=== PATIENT | male | born 1945 | race Caucasian/White ===

== ENCOUNTER 2017-02-28 01:13 | Emergency (ER) | payer MEDICARE ==
--- NOTE | ~2017-02-28 | CR72 ---
[facility] A Service of [facility] & [facility] RADIOLOGY TEXT RESULTS PATIENT: LILIAN CURRIE LOCATION: [facility] : 43 UNIT #: [id number] AGE: [address]: Americo Murrieta MD SEX: M ORDER DR: [id number] [facility] [address] [place], [place] [address] [id number] MR#: [id number] #: [id number] NAME: LILIAN CURRIE : 1945 SEX: M STUDY DATE/TIME: 02/28/2017 1:54 UNIT: [facility] ROOM: STUDY DESCRIPTION: CR Chest Single View Portable Attending Physician: Americo Murrieta M.D. Ordering Physician: Americo Murrieta M.D. Primary Care Physician: Morteza Cordova A.P.R.N. MEDICAL IMAGING REPORT This report is preliminary unless electronic signature is present EXAM Portable chest INDICATIONS Shortness of air for 6 days. COMPARISON 03/26/10 FINDINGS This portable view of the chest shows diffuse interstitial prominence suggesting infiltrate. There is a small left effusion and there is some left pleural reaction probably due to old trauma, which was present on 03/26/10. The heart size is normal. The bones are unremarkable. Dictated by... Tin Harrington M.D. THIS IS AN ELECTRONICALLY VERIFIED REPORT Tin Harrington M.D. at 02/28/2017 4:42 AM EDNA/rei TD: 02/28/2017 02:27 JOB #: [id number] MEDICAL IMAGING REPORT Page 1 of 1 COPY
--- NOTE | ~2017-02-28 | EKG ---
PATIENT: LILIAN CURRIE UNIT #: [id number] Ventricular Rate: 97 BPM Atrial Rate: 97 BPM P-R Interval: 168 ms QRS Duration: 122 ms Q-T Interval: 368 ms QTC Calculation(Bezet): 467 ms P [place]: 68 degrees Calculated R [place]: -39 degrees Calculated T [place]: 102 degrees Diagnosis Line: Normal sinus rhythm Diagnosis Line: Left axis deviation Diagnosis Line: Left ventricular hypertrophy with QRS widening Diagnosis Line: Cannot rule out Septal infarct (cited on or before Diagnosis Line: 31-JUL-2009) Diagnosis Line: ST and T wave abnormality, consider lateral ischemia Diagnosis Line: Abnormal ECG Diagnosis Line: When compared with ECG of 01-AUG-2009 06:39, Diagnosis Line: Significant changes have occurred Diagnosis Line: Confirmed by NO NORMAN, EMMANUEL ([id number]) on Diagnosis Line: 02/28/2017 4:06:50 PM INTERPRETING MD: HERBERTH
[~2017-02-28 01:13] MED LIST: ASPIRINEC PO; BACTRIM DS TABL1 TA1 PO; KEFLEX500 MG PO; LEVAQUIN750 MG PO; LOPRESSOR PO; PLAVIX PO; PRAVACHOL PO; SYNTHROID125 PO
[2017-02-28 02:06] LABS: BASOPHIL% 0.4 % (0-2.5); EOSINOPHIL# 0.6 X10e3 (0-0.7); HEMATOCRIT 38.5 % (38.0-50.0); HEMOGLOBIN 12.6 gm/dL (13.0-16.0); LYMPHOCYTE# 1.7 X10e3 (1.0-3.5); LYMPHOCYTE% 15.2 % (17.0-45.0); MEAN CELL VOLUME 99.9 FL (83-96); MEAN CORPUSCULAR HEMOGLOBIN 32.8 PG (28-34); MEAN CORPUSCULAR HGB CONC 32.9 g/dL (30-36); MEAN PLATELET VOLUME 10.4 FL (6.5-11.5); MONOCYTE# 1.2 X10e3 (0-1.0); NEUTROPHIL% 69.4 % (40-75); RED BLOOD COUNT 3.85 X10e (3.90-5.60); RED CELL DISTRIBUTION WIDTH 13.3 % (11.0-15.5); WHITE BLOOD COUNT 11.5 X10e3 (4.0-10.5)
[2017-02-28 02:06] LABS: POC - CKMB 2.1 ng/mL (0.0-7.9); POC - TROPONIN <0.05 ng/mL (<=0.05)
[2017-02-28 02:24] LABS: DIFF IND NO; PLATELET COUNT 156 X10e3 (140-420)
[2017-02-28 02:29] LABS: BUN/CREATININE RATIO 12.72; CALCIUM SERUM 8.8 mg/dL (8.4-10.2); CREATININE SERUM 1.1 mg/dL (0.6-1.4); GLOM FILT RATE Estimated 66.3 mL/min (>60); POTASSIUM 3.9 mmol/L (3.5-5.1)
== END 2017-02-28 03:10 | disposition home or self-care (01) ==
LOC: CED 01:13
PROVIDERS: Emergency Medicine
DX: J44.1 Chronic obstructive pulmonary disease with (acute) exacerbation (principal); J18.1 Lobar pneumonia, unspecified organism; I25.10 Atherosclerotic heart disease of native coronary artery without angina pectoris; I35.0 Nonrheumatic aortic (valve) stenosis; F17.200 Nicotine dependence, unspecified, uncomplicated; Z79.82 Long term (current) use of aspirin; Z79.899 Other long term (current) drug therapy
CPT/HCPCS: 36415; 71010; 80048; 82553; 83880; 84484; 85025; 93005; 94640; 99285

== ENCOUNTER 2017-03-05 | Emergency (ER) | payer MEDICARE ==
--- NOTE | ~2017-03-05 | EKG ---
PATIENT: LILIAN CURRIE UNIT #: [id number] Ventricular Rate: 74 BPM Atrial Rate: 74 BPM P-R Interval: 136 ms QRS Duration: 126 ms Q-T Interval: 404 ms QTC Calculation(Bezet): 448 ms P [place]: 1 degrees Calculated R [place]: -46 degrees Calculated T [place]: 137 degrees Diagnosis Line: Sinus rhythm with occasional Premature ventricular Diagnosis Line: complexes and Premature atrial complexes Diagnosis Line: Left axis deviation Diagnosis Line: Left ventricular hypertrophy with QRS widening Diagnosis Line: Cannot rule out Septal infarct , age undetermined Diagnosis Line: T wave abnormality, consider lateral ischemia Diagnosis Line: Abnormal ECG Diagnosis Line: No previous ECGs available Diagnosis Line: Confirmed by JACKELINE PERDOMO MD ([id number]) on Diagnosis Line: 03/05/2017 3:57:44 PM INTERPRETING MD: CONOR NORMAN
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
--- NOTE | ~2017-03-05 | CR72 ---
[facility] A Service of [facility] RADIOLOGY TEXT RESULTS PATIENT: LILIAN CURRIE LOCATION: [facility] : 43 UNIT #: [id number] AGE: [address]: Lloyd Santos MD SEX: M ORDER DR: [id number] [facility] [address] [place], [place] [address] [id number] I MR#: [id number] Acc #: [id number] NAME: LILIAN CURRIE : 1945 SEX: M STUDY DATE/TIME: 03/05/2017 01:09 UNIT: [facility] ROOM: 92404 STUDY DESCRIPTION: CR Chest Single View Portable Attending Physician: Lloyd Santos M.D. Ordering Physician: Nery Gonzalez M.D. Primary Care Physician: Morteza Cordova A.P.R.N. MEDICAL IMAGING REPORT This report is preliminary unless electronic signature is present EXAM Portable chest, 03/05 at 01:09 INDICATION Shortness of air and soft tissue swelling in the legs for 1 day. History of COPD. FINDINGS AP portable chest is compared with 02/28/2017. Cardiomegaly is stable. There is emphysema. There is evidence of scarring in both lungs, particularly in the left lung. There is chronic blunting of the left costophrenic angle. There is new infiltrate or atelectasis at the right base and there is a trace amount of right pleural fluid. No pneumothorax. Dictated by... Americo Cannon Jr., M.D. THIS IS AN ELECTRONICALLY VERIFIED REPORT Americo Cannon Jr., M.D. at 03/05/2017 9:52 PM KERRY/juan david TD: 03/05/2017 08:13 JOB #: [id number] MEDICAL IMAGING REPORT Page 1 of 1 COPY
--- NOTE | ~2017-03-05 | EKG ---
PATIENT: LILIAN CURRIE UNIT #: [id number] Ventricular Rate: 69 BPM Atrial Rate: 69 BPM P-R Interval: 132 ms QRS Duration: 118 ms Q-T Interval: 406 ms QTC Calculation(Bezet): 435 ms P [place]: 7 degrees Calculated R [place]: -41 degrees Calculated T [place]: 134 degrees Diagnosis Line: Normal sinus rhythm Diagnosis Line: Left axis deviation Diagnosis Line: Left ventricular hypertrophy with QRS widening Diagnosis Line: Cannot rule out Septal infarct (cited on or before Diagnosis Line: 31-JUL-2009) Diagnosis Line: ST and T wave abnormality, consider lateral ischemia Diagnosis Line: Abnormal ECG Diagnosis Line: When compared with ECG of 28-FEB-2017 01:48, Diagnosis Line: No significant change was found Diagnosis Line: Confirmed by JESSIE PERDOMO [facility] ([id number]) on Diagnosis Line: 03/05/2017 3:57:34 PM INTERPRETING MD: CONOR NORMAN
[2017-03-05 01:43] LABS: POC - CKMB 2.7 ng/mL (0.0-7.9); POC - TROPONIN <0.05 ng/mL (<=0.05)
[2017-03-05 01:55] LABS: INR 1.1; PARTIAL THROMBOPLASTIN TIME 27.4 SECONDS (23.5-31.3); PROTHROMBIN TIME (PATIENT) 11.4 SECONDS (10.0-11.7)
[2017-03-05 01:58] LABS: BASOPHIL% 0.1 % (0-2.5); HEMATOCRIT 37.4 % (38.0-50.0); HEMOGLOBIN 12.3 gm/dL (13.0-16.0); LYMPHOCYTE# 1.1 X10e3 (1.0-3.5); LYMPHOCYTE% 7.8 % (17.0-45.0); MEAN CELL VOLUME 100.8 FL (83-96); MEAN CORPUSCULAR HEMOGLOBIN 33.1 PG (28-34); MEAN CORPUSCULAR HGB CONC 32.8 g/dL (30-36); MEAN PLATELET VOLUME 10.3 FL (6.5-11.5); MONOCYTE# 1.1 X10e3 (0-1.0); MONOCYTE% 7.7 % (3.0-12.0); NEUTROPHIL# 12.1 X10e3 (1.5-7.1); NEUTROPHIL% 84.4 % (40-75); RED BLOOD COUNT 3.71 X10e (3.90-5.60); RED CELL DISTRIBUTION WIDTH 13.3 % (11.0-15.5); WHITE BLOOD COUNT 14.4 X10e3 (4.0-10.5)
[2017-03-05 02:03] LABS: DIFF IND NO; PLATELET COUNT 223 X10e3 (140-420)
[2017-03-05 02:05] LABS: ALBUMIN SERUM 3.5 g/dL (3.5-5.0); BILIRUBIN, DIRECT 0.2 mg/dL (0.0-0.2); BILIRUBIN,TOTAL 1.2 mg/dL (0.2-2.0); BUN/CREATININE RATIO 18.18; CALCIUM SERUM 8.4 mg/dL (8.4-10.2); CREATININE SERUM 1.1 mg/dL (0.6-1.4); GLOM FILT RATE Estimated 66.3 mL/min (>60); PROTEIN TOTAL SERUM 6.5 g/dL (6.0-8.3)
[2017-03-05 08:19] LABS: CK TOTAL 58 IU/L (36-174)
[2017-03-05 08:34] LABS: POC - CKMB 2.2 ng/mL (0.0-7.9); POC - TROPONIN <0.05 ng/mL (<=0.05)
[2017-03-05] MEDS ORDERED: PATIENT'S PHARMACY (10:53)
[2017-03-05 11:17] LABS: CHOLESTEROL 128 mg/dL (0-200); HDL CHOLESTEROL 49 mg/dL (29-75); LDL CHOLESTEROL 72 mg/dL (-130); LDL/HDL RATIO 1 RATIO (0-4); TRIGLYCERIDES 37 mg/dL (10-160)
== END 2017-03-05 13:16 | disposition left against medical advice (07) ==
LOC: CED → CEDOF 05:00 → CED 05:00 → CEDOF 05:26 → UNDODEPER 13:49
PROVIDERS: Emergency Medicine; Nurse Practitioner
DX: R06.02 Shortness of breath (principal); R60.9 Edema, unspecified; I35.8 Other nonrheumatic aortic valve disorders; I10 Essential (primary) hypertension; E78.5 Hyperlipidemia, unspecified; E03.9 Hypothyroidism, unspecified; F17.200 Nicotine dependence, unspecified, uncomplicated; Z79.82 Long term (current) use of aspirin; Z79.899 Other long term (current) drug therapy; J43.9 Emphysema, unspecified
CPT/HCPCS: 36415; 71010; 80048; 80061; 80076; 82550; 82553; 83880; 84443; 84484; 85025; 85610; 85730; 93005; 96374; 99285; J1940